=== PATIENT | male | born 2000 ===

== ENCOUNTER 2019-10-01 14:49 | Outpatient (CLI) | payer SELFPAY ==
[2019-10-01] MEDS ORDERED: No meds per pt. (15:09)
== END 2019-10-01 23:59 | disposition home or self-care (01) ==
LOC: STAR 14:49
PROVIDERS: ATTEND Orthopaedic Surgery
DX: Z02.9 Encounter for administrative examinations, unspecified (principal)

== ENCOUNTER 2019-10-06 13:07 | Day surgery (SDC) | payer MEDICAID, OTHER ==
[~2019-10-06] VITALS: Ht 170.2 cm; Wt 84.5 kg
[~2019-10-06 13:07] MED LIST: FENTANYL PF 250 MCG/5ML ONE; LIDOCAINE/PF 1%-EPI 1:200K, 30 ML ONE; MIDAZOLAM 1 MG/ML, 2ML ONE; No meds per pt.; ROPIvacaine/PF 0.5%, 30 ML ONE
[2019-10-06 13:32] VITALS: BP 135/79
[2019-10-06] MEDS ORDERED: LACTATED RINGERS 1,000 ML IV SCH (13:37)
[2019-10-06] MEDS ORDERED: DIAZEPAM 5 MG TABLET PO ONE (14:00)
[2019-10-06] MEDS ORDERED: SCOPOLAMINE 1MG PATCH TD SCH (14:00)
[2019-10-06] MEDS ORDERED: ACETAMINOPHEN 500 MG TABLET PO ONE (14:00)
[2019-10-06] MEDS ORDERED: ONDANSETRON ODT 8 MG PO PRN (15:00)
[2019-10-06] MEDS ORDERED: PROMETHAZINE 12.5 MG SUPP PR PRN (15:00)
[2019-10-06] MEDS ORDERED: PROMETHAZINE 25 MG SUPP PR PRN (15:00)
[2019-10-06] MEDS ORDERED: MEPERIDINE/PF 25MG/ML,1ML IVPush PRN (15:00)
[2019-10-06] MEDS ORDERED: ONDANSETRON 2MG/ML, 2ML IV PRN (15:00)
[2019-10-06] MEDS ORDERED: HYDROmorphone 2 MG/ML, 1ML IVPush PRN (15:00)
[2019-10-06] MEDS ORDERED: DEXAMETHASONE 4 MG/ML, 1ML ONE (15:42)
[2019-10-06] MEDS ORDERED: CEFAZOLIN 1,000 MG ONE (15:42)
[2019-10-06] MEDS ORDERED: ONDANSETRON 2MG/ML, 2ML ONE (15:42)
[2019-10-06] MEDS ORDERED: PROPOFOL 10 MG/ML, 20ML ONE (15:42)
[2019-10-06] MEDS ORDERED: MEPERIDINE/PF 25MG/ML,1ML ONE (16:05)
[2019-10-06] MEDS ORDERED: FENTANYL PF 100 MCG/2ML ONE (16:40)
[2019-10-06] MEDS ORDERED: OXYcodone 5 MG/5 ML ORAL.SOL UDC ONE ×2 (16:41→17:21)
[2019-10-06] MEDS: FENTANYL PF 100 MCG/2ML IV PRN ×3 (16:42→17:01)
[2019-10-06] MEDS: OXYcodone 5 MG/5 ML ORAL.SOL UDC PO PRN ×2 (16:45→17:20)
== END 2019-10-06 18:28 | disposition home or self-care (01) ==
LOC: OUT 13:07
PROVIDERS: ATTEND Orthopaedic Surgery
DX: S83.512A Sprain of anterior cruciate ligament of left knee, initial encounter (principal); S83.282A Other tear of lateral meniscus, current injury, left knee, initial encounter; X50.1XXA Overexertion from prolonged static or awkward postures, initial encounter; Y93.23 Activity, snow (alpine) (downhill) skiing, snowboarding, sledding, tobogganing and snow tubing; Y92.89 Other specified places as the place of occurrence of the external cause; Y99.8 Other external cause status
CPT/HCPCS: 29881; 29888; 64447; 73560; 76942; C1713; C1762; J0690; J1100; J2175; J2250; J2405; J2704; J2795; J3010; J3490; J7120; 76000